=== PATIENT | male | born 1960 | race Caucasian/White ===

== ENCOUNTER 2021-05-17 00:51 | Day surgery (SDC) | payer OTHER, SELFPAY ==
[2021-05-05 14:46] VITALS: BMI 25.2
[2021-05-17] MEDS: LACTATED RINGERS 1,000 ML 150 ML IV CONT (10:48)
--- NOTE | 2021-05-17 10:58 | WPDANESEPPF ---
Anes - Initial Pre Proc Eval Procedure: Operation Date: 05/17/21 11:30 Proposed Procedures p Colonoscopy - Elvin Girard MD Date/Time: 05/17/21 10:58 Surgeon: Elvin Girard MD Pre Op Diagnosis: diarrhea, hx of colon polyps Patient Data Age: 60 Gender: M Height: 1.8 m Weight: 82 kg Allergies Allergy/AdvReac Type Severity Reaction Status Date / Time Contrast Media Allergy Mild HIVES Uncoded 05/05/21 14:44 Home Medications Medication Instructions Recorded Confirmed Type sildenafil 100 mg tablet 100 mg PO DAILY PRN #10 tablet 10/19/19 05/05/21 Rx duloxetine 60 mg capsule,delayed 60 mg PO DAILY #90 cap 01/15/21 05/05/21 Rx release lemborexant 10 mg tablet 10 mg PO QHS #30 tablet 04/03/21 05/05/21 Rx atorvastatin 20 mg tablet 20 mg PO DAILY #90 tablet 04/16/21 05/05/21 Rx cyclobenzaprine 10 mg PO TID PRN 05/05/21 05/05/21 History lorazepam 0.5 mg tablet 0.5 mg PO .QHS PRN #30 tablet 05/15/21 Rx naloxone 4 mg/actuation nasal spray 4 mg INTRANASAL Q2-3M PRN #2 ea 05/15/21 Rx oxycodone 10 mg tablet 10 mg PO Q4H PRN #150 tablet 05/15/21 Rx Patient hx anesthesia problems: none Family hx anesthesia problems: none PMFSH Past Medical History Medical History Anemia Anxiety disorder, unspecified Bilateral primary osteoarthritis of hip Bilateral shoulder pain Bladder wall thickening BMI 26.0-26.9,adult BMI 27.0-27.9,adult Cervical disc disorder with myelopathy, unspecified cervical region Major depressive disorder, single episode, unspecified Mixed hyperlipidemia Primary insomnia Smoking 1/2 pack a day or less Testicular hypofunction Tobacco abuse Family History Family History Other Family history of coronary artery disease Family history of malignant neoplasm Social History Social History Smoking packs per day: 1 Smoking cigarettes per day: 20.0 Years smoked: 2 Smoking pack-years: 2.00 Smoking status: Current every day smoker Tobacco type: cigarettes Alcohol intake: never Substance use: current Substance use type: marijuana Living arrangements: with family Spiritual care concerns: No Anes - Eval Final PreProcedure Day of Procedure 05/17/21 10:58 Patient weight: normal Heart: regular rate and rhythm Lungs: clear to auscultation Airway: Mallampati scale class II Neurological: alert and oriented Last oral intake: >/= 8 hours ASA classification: III Emergent: no Anesthetic plan: proceed Anesthesia type and monitoring: general GIVS and standard monitoring Informed Consent: The patient's anesthetic plan and its attendant risks and benefits were discussed with the patient/family/POA. Questions were solicited and answers provided to the satisfaction of the patient/family/POA.
[2021-05-17 11:01] VITALS: PULSE 100; RESP 18; TEMP 36.1; O2SAT 100; BMI 24.4
--- NOTE | 2021-05-17 11:27 | PM.HPGS ---
History of Present Illness History of Present Illness Consent: Risks, benefits, and alternatives have been discussed and questions answered. Patient agrees to proceed with procedure. Chief complaint: diarrhea, hx of colon polyps Narrative: Konrad Hagen is a 60 year old male Who has had a change in bowel habits. For about 2 or 3 months he has had very loose stools. There is no blood in his stools. He also has had a discomfort a steady almost continuous pain in the left lower quadrant. This actually began almost 2 years ago. His last colonoscopy was 8 years ago Review of Systems Review of Systems: All systems reviewed & are unremarkable except as noted in HPI and below PMFSH Past Medical History Medical History Anemia Anxiety disorder, unspecified Bilateral primary osteoarthritis of hip Bilateral shoulder pain Bladder wall thickening BMI 26.0-26.9,adult BMI 27.0-27.9,adult Cervical disc disorder with myelopathy, unspecified cervical region Major depressive disorder, single episode, unspecified Mixed hyperlipidemia Primary insomnia Smoking 1/2 pack a day or less Testicular hypofunction Tobacco abuse Family History Family History Other Family history of coronary artery disease Family history of malignant neoplasm Social History Social History Smoking packs per day: 1 Smoking cigarettes per day: 20.0 Years smoked: 2 Smoking pack-years: 2.00 Smoking status: Current every day smoker Tobacco type: cigarettes Alcohol intake: never Substance use: current Substance use type: marijuana Living arrangements: with family Spiritual care concerns: No Meds Home Medications and Allergies Home Medications Medication Instructions Recorded Confirmed Type sildenafil 100 mg tablet 100 mg PO DAILY PRN #10 tablet 10/19/19 05/05/21 Rx duloxetine 60 mg capsule,delayed 60 mg PO DAILY #90 cap 01/15/21 05/05/21 Rx release lemborexant 10 mg tablet 10 mg PO QHS #30 tablet 04/03/21 05/05/21 Rx atorvastatin 20 mg tablet 20 mg PO DAILY #90 tablet 04/16/21 05/05/21 Rx cyclobenzaprine 10 mg PO TID PRN 05/05/21 05/05/21 History lorazepam 0.5 mg tablet 0.5 mg PO .QHS PRN #30 tablet 05/15/21 Rx naloxone 4 mg/actuation nasal spray 4 mg INTRANASAL Q2-3M PRN #2 ea 05/15/21 Rx oxycodone 10 mg tablet 10 mg PO Q4H PRN #150 tablet 05/15/21 Rx Allergies Allergy/AdvReac Type Severity Reaction Status Date / Time Contrast Media Allergy Mild HIVES Uncoded 05/17/21 10:59 Vital Signs Vital Signs - 24 hr 05/17/21 11:01 Temperature 36.1 C L Pulse Rate 100 Respiratory Rate 18 Pulse Oximetry 100 Exam Resp: Auscultation: clear to auscultation bilaterally Cardio: Rate: regular rate Rhythm: regular rhythm GI: GI Palp: Yes Soft to palpation and No Tenderness to palpation present (GI) Assessment and Plan Assessment and plan (1) Diarrhea: Code(s): R19.7 - Diarrhea, unspecified Status: Acute Assessment and Plan: Colonoscopy with possible biopsy or polypectomy or cautery or injection of substances.
[2021-05-17 11:50] VITALS: BP 92/55; PULSE 71; RESP 24; O2SAT 95
[2021-05-17 12:00] VITALS: BP 94/54; PULSE 72; RESP 18; O2SAT 93
[2021-05-17 12:10] VITALS: BP 105/70; PULSE 69; RESP 21; O2SAT 95
== END 2021-05-17 12:20 | disposition home or self-care (01) ==
PROVIDERS: PCP Family Medicine; Visit Provider Internal Medicine Gastroenterology
PROC: 0DJD8ZZ Inspection of Lower Intestinal Tract, Via Natural or Artificial Opening Endoscopic (ICD-10-PCS; CPT 45378; principal; 2021-05-17 11:30)
DX: K59.1 Functional diarrhea (principal); K62.1 Rectal polyp; Z86.010 Personal history of colon polyps; F41.9 Anxiety disorder, unspecified; D64.9 Anemia, unspecified; F32.9 Major depressive disorder, single episode, unspecified; E78.2 Mixed hyperlipidemia; G47.00 Insomnia, unspecified; F17.210 Nicotine dependence, cigarettes, uncomplicated; F12.90 Cannabis use, unspecified, uncomplicated
CPT/HCPCS: 45380; 88305; J2704; J7120

== ENCOUNTER 2024-01-18 10:09 | Outpatient (CLI) | payer OTHER, SELFPAY ==
--- NOTE | ~2024-01-18 | MR_ITS ---
EXAMINATION: MR cervical spine wo con DATE: 01/18/2024 11:20 INDICATION: Cervical spondylosis with myelopathy. TECHNIQUE: Magnetic resonance imaging (MRI) of the cervical spine was performed without intravenous c ontrast. Sequences included sagittal T2-weighted FSE, sagittal T2-weighted FS FSE, sagittal T1-weight ed FSE, axial MERGE, and axial T2-weighted FSE. COMPARISON: Cervical spine MRI 04/17/2010 FINDINGS: There is mild kyphosis of cervical spine. There is mild chronic anterior wedging of C4 and T1 vertebral bodies. There is mildly decreased disc height at C4-C5, C5-C6, and C6-C7. The spinal cor d signal intensity is normal. The following disc levels are specifically discussed: C2-C3: The disc does not extend beyond the endplate margin. There is no uncovertebral joint osteoarth ritis. There is ankylosis of left facet joint with moderate hypertrophy. There is no neural foraminal stenosis. There is no central canal stenosis. C3-C4: The disc does not extend beyond the endplate margin. There is mild right uncovertebral joint o steoarthritis. There is severe right and moderate left facet joint osteoarthritis. There is mild righ t neural foraminal stenosis. There is no central canal stenosis. C4-C5: The disc is bulging. There is severe right and moderate left uncovertebral joint osteoarthriti s. There is moderate bilateral facet joint osteoarthritis. There is moderate right and mild left neur al foraminal stenosis. There is mild central canal stenosis. C5-C6: The disc is bulging. There is severe bilateral uncovertebral joint osteoarthritis. There is mi ld bilateral facet joint osteoarthritis. There is moderate right and mild left neural foraminal steno sis. There is mild central canal stenosis. C6-C7: There is a left central extrusion. There is mild bilateral uncovertebral joint osteoarthritis. There is mild right and moderate left facet joint osteoarthritis. There is mild left neural foramina l stenosis. There is mild central canal stenosis. C7-T1: The disc does not extend beyond the endplate margin. There is no uncovertebral joint osteoarth ritis. There is severe bilateral facet joint osteoarthritis. There is mild bilateral neural foraminal stenosis. There is no central canal stenosis. IMPRESSION: 1. Moderate cervical spondylosis, worsened from 04/17/2010. Reviewed, dictated and finalized at location E.
== END 2024-01-18 10:10 ==
LOC: MICIMG 10:11
PROVIDERS: PCP Family Medicine; Visit Provider Family Medicine
DX: M47.22 Other spondylosis with radiculopathy, cervical region (principal)
CPT/HCPCS: 72141

== ENCOUNTER 2024-06-13 12:20 | Emergency (ER) | payer OTHER, SELFPAY ==
[2024-06-13 12:28] VITALS: BP 153/85; PULSE 63; RESP 16; TEMP 36.7; O2SAT 98
--- NOTE | 2024-06-13 12:36 | ED.DENTAL ---
HPI - Dental/Oral General Chief complaint: Dental/Oral Stated complaint: Dental Pain Time Seen by Provider: 06/13/24 12:35 Source: patient, RN notes reviewed and old records reviewed Mode of arrival: ambulatory Limitations: no limitations History of Present Illness HPI Narrative: 63-year-old male presents to the [facility] with a dental swelling, facial swelling after a tooth extraction on Saturday. States he woke this morning with some swelling to the face Related Data Allergies Allergy/AdvReac Type Severity Reaction Status Date / Time Iodinated Contrast Media Allergy Mild Rash Verified 06/04/24 13:00 Review of Systems Review of Systems: All systems reviewed & are unremarkable except as noted in HPI and below Constitutional: Constitutional: Reports no additional constitutional complaints Eyes: Eyes: Reports no additional eye complaints ENT: Reports as per HPI Cardiovascular: Cardiovascular: Reports no additional cardiovascular complaints, Denies chest pain and Denies dyspnea Respiratory: Respiratory: Reports no additional respiratory complaints, Denies chest congestion, Denies cough and Denies dyspnea Gastrointestinal: Gastrointestinal: Reports no additional gastrointestinal complaints, Denies abdominal pain, Denies nausea and Denies vomiting Musculoskeletal: Musculoskeletal: Reports no additional musculoskeletal complaints Integumentary/Breasts: Skin/Breast: Reports system reviewed and no additional complaints, except as docu Neurologic: Reports system reviewed and no additional complaints, except as documented Psychiatric: Psychiatric: Reports no additional psychiatric complaints Allergic/Immunologic: Allergic/Immunologic: Reports no additional allergic/immunologic complaints [facility] Past Medical History Medical History Anemia Anxiety disorder, unspecified Bilateral primary osteoarthritis of hip Bilateral shoulder pain Bladder wall thickening Cervical disc disorder with myelopathy, unspecified cervical region Cervical spondylosis with myelopathy and radiculopathy Chronic pain Elevated BP without diagnosis of hypertension Headache Lumbar spondylosis Major depressive disorder, single episode, unspecified Mixed hyperlipidemia Myalgia Need for vaccination Osteoarthritis of knees, bilateral Osteoarthritis, hip, bilateral Primary insomnia Smoking 1/2 pack a day or less Testicular hypofunction Tobacco abuse Surgical History Surgical History H/O bilateral hip replacements Family History Family History Father Blind Mother Cancer Other Family history of coronary artery disease Family history of malignant neoplasm Social History Social History Smoking packs per day: 1 Smoking cigarettes per day: 20.0 Years smoked: 2 Smoking pack-years: 2.00 Smoking status: Current every day smoker (1ppd) Tobacco type: cigarettes Second hand tobacco smoke exposure: No Alcohol intake: current Substance use: current Substance use type: marijuana Do You Feel Safe in your Home?: Yes Lack of Transportation: No Lack of Food: Never True Current Housing: I Have Housing Concerned About Future Housing: No Difficulty Paying Gas/Electric Bills: No Difficulty Paying for Meds: No Currently Unemployed: No Education: Associate Degree Difficulty w/ Childcare or Family Care: No Living arrangements: with family Occupation/Education: occupation Additional occupation/education comments: [employer] Gender identity (if verbalized by the patient): Male Spiritual care concerns: No Comments At the time of my signature, I reviewed and agree with the nursing past medical, surgical, social, and family history. There is no relevant family history pertinent to the yolie
== END 2024-06-13 12:47 | disposition home or self-care (01) ==
PROVIDERS: Emergency Provider Nurse Practitioner; PCP Family Medicine
DX: T81.49XA Infection following a procedure, other surgical site, initial encounter (principal); K04.7 Periapical abscess without sinus; Z98.818 Other dental procedure status; F17.210 Nicotine dependence, cigarettes, uncomplicated; F12.90 Cannabis use, unspecified, uncomplicated; E78.5 Hyperlipidemia, unspecified; M16.0 Bilateral primary osteoarthritis of hip; M47.12 Other spondylosis with myelopathy, cervical region; M47.22 Other spondylosis with radiculopathy, cervical region; M47.816 Spondylosis without myelopathy or radiculopathy, lumbar region; M17.0 Bilateral primary osteoarthritis of knee; Z96.643 Presence of artificial hip joint, bilateral
CPT/HCPCS: 99213; G0463